=== PATIENT | male | born 1975 | race Native Hawaiian/Other Pacific Islander ===

== ENCOUNTER 2018-03-24 09:22 | Outpatient (CLI) | payer OTHER | END 2018-03-24 18:58 | disposition home or self-care (01) | LOC: RESP 09:22 | DX: G40.909 Epilepsy, unspecified, not intractable, without status epilepticus (principal) ==

== ENCOUNTER 2020-01-29 10:59 | Emergency (ER) | payer OTHER ==
[~2020-01-29] VITALS: Ht 170.2 cm; Wt 88.5 kg
[2020-01-29 11:15] VITALS: TEMP 97.7
[2020-01-29 11:49] LABS: PLATELET COUNT 151 K/uL (142-355)
[2020-01-29 11:54] LABS: POTASSIUM 4.5 mmol/L (3.6-5.2); SODIUM 140 mmol/L (136-145)
[2020-01-29 13:07] VITALS: BP 135/81
== END 2020-01-29 13:09 | disposition home or self-care (01) ==
LOC: ED 10:59
PROVIDERS: Family Medicine
DX: R07.89 Other chest pain (principal); K21.9 Gastro-esophageal reflux disease without esophagitis; G47.419 Narcolepsy without cataplexy; G47.39 Other sleep apnea
CPT/HCPCS: 80053; 82550; 84484; 85027; 85379; 93005; 96374; 96375; 99284; J2405; J3490

== ENCOUNTER 2020-08-11 18:57 | Emergency (ER) | payer OTHER ==
[~2020-08-11] VITALS: Ht 172.7 cm; Wt 99.8 kg
[2020-08-11 19:20] LABS: PLATELET COUNT 142 K/uL (142-355)
[2020-08-11 19:31] LABS: SODIUM 143 mmol/L (136-145)
[2020-08-11 21:00] VITALS: BP 150/81; TEMP 98.7
== END 2020-08-11 21:00 | disposition home or self-care (01) ==
LOC: ED 18:57
PROVIDERS: Emergency Medicine
DX: R53.1 Weakness (principal); R55 Syncope and collapse; Z87.898 Personal history of other specified conditions; Z79.899 Other long term (current) drug therapy
CPT/HCPCS: 36415; 80053; 80307; 80320; 81000; 82550; 83880; 84484; 85027; 93005; 96360; 99284

== ENCOUNTER 2022-05-30 05:24 | Observation (INO) | payer OTHER ==
[~2022-05-30] VITALS: Ht 170.2 cm; Wt 84.9 kg
[2022-05-30] VITALS (7 sets, daily range): BP systolic 107–166; BP diastolic 60–99; TEMP 97.6–98.4; Ht 170.2 cm; Wt 84.9 kg
[2022-05-30 06:17] LABS: PLATELET COUNT 182 K/uL (142-355)
[2022-05-30 06:33] LABS: PARTIAL THROMBOPLASTIN TIME 24.8 SECONDS (24.5-33.6)
[2022-05-30 06:36] LABS: POTASSIUM 2.3 mmol/L (3.6-5.2)
[2022-05-30] MEDS ORDERED: NEURONTIN800 MG PO (09:20)
[2022-05-30] MEDS ORDERED: CARB400T PO (09:23)
[2022-05-30] MEDS ORDERED: LIPITOR10 MG PO ×2 (09:24→16:19)
[2022-05-30] MEDS ORDERED: GLIP10TA55 PO ×2 (09:24→16:20)
[2022-05-30] MEDS ORDERED: LISI5TAB10 PO ×2 (09:25→16:21)
[2022-05-30 11:42] LABS: SODIUM 141 mmol/L (136-145)
[2022-05-30 15:50] LABS: POTASSIUM 4.1 mmol/L (3.6-5.2)
== END 2022-05-30 17:29 | disposition home or self-care (01) ==
LOC: ED 05:24 → MED/SURG 07:30
PROVIDERS: Emergency Medicine; ADMIT Internal Medicine; ATTEND Internal Medicine
DX: E87.6 Hypokalemia (principal); R53.1 Weakness; E11.9 Type 2 diabetes mellitus without complications; I10 Essential (primary) hypertension; G40.802 Other epilepsy, not intractable, without status epilepticus; Z79.899 Other long term (current) drug therapy; Z51.81 Encounter for therapeutic drug level monitoring
CPT/HCPCS: 80048; 80053; 82550; 83036; 83605; 83735; 84484; 85027; 85610; 85730; 93005; 96361; 96365; 96372; 99221; 99284; G0378; J1815